=== PATIENT | male | born 1945 | race Caucasian/White ===

== ENCOUNTER 2025-05-18 14:28 | Emergency (ER) | payer MEDICARE, SELFPAY ==
[2025-05-18 14:20] VITALS: BP 102/69; PULSE 100; RESP 18; TEMP 37.3; O2SAT 98; BMI 22.9
--- NOTE | 2025-05-18 14:32 | XR_ITS ---
WS: [id number] Portable AP upright chest, 05/18/2025 Clinical Data: Possible Sepsis Comparison: None. Findings: No nodules, masses or effusions are seen. The heart is normal. The pulmonary vascularity is not increased. No pneumonia or pneumothorax is seen. The aortic arch and descending thoracic aorta show tortuosity. XR/XR chest 1V portable [id number] Impression: Atherosclerosis.
--- NOTE | 2025-05-18 14:35 | CTR_ITS ---
PROCEDURE INFORMATION: Exam: CT Head Without Contrast Exam date and time: 05/18/2025 3:23 PM Age: 79 years old Clinical indication: Altered mental status/memory loss; Additional info: AMS TECHNIQUE: Imaging protocol: Computed tomography of the head without contrast. Radiation optimization: All CT scans at this facility use at least one of these dose optimization techniques: automated exposure control; mA and/or kV adjustment per patient size (includes targeted exams where dose is matched to clinical indication); or iterative reconstruction. COMPARISON: No relevant prior studies available. RADIATION DOSE METRICS: Total DLP (mGy-cm): 905.68 FINDINGS: Brain: Moderate to severe diffuse atrophy of the brain.There is ill-defined, fairly symmetric low-density within the cerebral deep white matter bilaterally which is likely the sequela of chronic ischemic change due to small vessel disease. No CT evidence of mass effect, intracranial hemorrhage, or acute infarct. Cerebral ventricles: Prominent ventricles due to the atrophy. Otherwise, unremarkable. Paranasal sinuses: Visualized sinuses are unremarkable. No fluid levels. Mastoid air cells: Visualized mastoid air cells are well aerated. Auditory system: Clear middle ear cavities bilaterally. Bones: Unremarkable. No acute fracture. Soft tissues: Otherwise, unremarkable. CT/CT head wo con* [id number] IMPRESSION: 1. No acute findings. 2. Additional details as above.
--- NOTE | 2025-05-18 14:35 | W.ED.AMS ---
Documented by User: Charis Christine MD 05/18/25 17:58 HPI - Altered Mental Status General: Chief Complaint: Altered Mental Status Stated Complaint: ams - cold extremities Time Seen by Provider: 05/18/25 19:14 Source: EMS Mode of arrival: EMS Limitations: altered mental status History of Present Illness: 79-year-old male is here from custodial has a history dementia per EMS patient's been more confused and normal was recently diagnosed with UTI there has been febrile there today EMS states that a temperature 101. Patient is here only able to tell me his name not able to give any other history besides that. EMS states he does have a history of severe dementia. No vomiting no diarrhea known Related Data Home Medications ?Medication ?Instructions ?Recorded ?Confirmed amlodipine 5 mg tablet 5 mg PO DAILY 05/18/25 05/18/25 aspirin 81 mg tablet,delayed 81 mg PO DAILY 05/18/25 05/18/25 release atorvastatin 20 mg tablet 20 mg PO BEDTIME 05/18/25 05/18/25 bisacodyl 10 mg rectal suppository 10 mg WY DAILY PRN Constipation 05/18/25 05/18/25 cephalexin 500 mg capsule 500 mg PO TID x7d 05/18/25 05/18/25 docusate sodium 100 mg capsule 200 mg PO DAILY PRN Constipation 05/18/25 05/18/25 (Colace) magnesium hydroxide 400 mg/5 mL 30 ml PO DAILY PRN Constipation 05/18/25 05/18/25 oral suspension (Milk of Magnesia) nystatin 100,000 unit/gram topical See Rx Instructions .Route .COMPLEX 05/18/25 05/18/25 cream polyethylene glycol 3350 17 417 g PO DAILY PRN Constipation 05/18/25 05/18/25 gram/dose oral powder (Miralax) sennosides 8.6 mg tablet (senna) 17.2 mg PO DAILY PRN bowel 05/18/25 05/18/25 management tramadol 50 mg tablet 50 mg PO Q6H PRN Pain 05/18/25 05/18/25 Allergies Allergy/AdvReac Type Severity Reaction Status Date / Time No Known Allergies Allergy Verified 05/18/25 14:30 Review of Systems General: Reports: ROS unobtainable due to mental status Physical Exam Const: COMMON NORMALS: negative for patient oriented x3 GENERAL APPEARANCE: ill appearing and frail appearing HENMT: COMMON NORMALS: normocephalic and atraumatic HEAD & SCALP: normocephalic and atraumatic Eye: COMMON NORMALS: Equal, round and reactive pupils present and EOMs intact bilaterally PUPIL: Yes Equal, round and reactive pupils present Neck/C-Spine: COMMON NORMALS: full ROM and supple Chest: COMMONS NORMALS: normal inspection of the chest and normal palpation of entire chest wall Resp: COMMON NORMALS: normal respiratory effort, No retractions, No use of accessory muscles and clear to auscultation bilaterally AUSCULTATION: clear to auscultation bilaterally Cardio: COMMON NORMALS: regular rate, regular rhythm and No murmurs present (Cardio) RATE: regular rate RHYTHM: regular rhythm GI: COMMON NORMALS: Normal to inspection, nondistended, normoactive bowel sounds present, Soft to palpation, non-tender and no masses PALPATION: Yes Soft to palpation Extremity: COMMON NORMALS: normal to inspection and full ROM Neuro: COMMON NORMALS: moves all extremities and no focal motor deficits; negative for patient oriented x3 Psych: COMMON NORMALS: cooperative; negative for mental status grossly normal Skin: COMMON NORMALS: no rashes or lesions noted and no wounds GENERAL SKIN EXAM: no rashes or lesions noted Course Vital Signs: Vital signs: Vital Signs Temperature 99.2 F 05/18/25 14:20 Pulse Rate 90 05/19/25 01:31 Respiratory Rate 16 05/19/25 01:31 Blood Pressure 120/83 05/19/25 01:31 Pulse Oximetry 100 05/19/25 01:31 Oxygen Delivery Me thod Room Air 05/18/25 18:35 MDM - Altered Mental Status Medical Decision Making Patient presents here with fever along with sepsis. Patient was found to have a urinary tract infection does have an elevated white count CT showed bladder wall thickening along with a irregular density the right distal ureter could be a phlegmon or developing abscess. Patient did get sepsis bolus blood cultures along with IV antibiotics here. His vitals here been normal. I do have a call out to urology at [facility] for possible transfer for urology with the possible abscess. Patient's care turned over to Dr. Weems at this time to facilitate phone calls and possible transfer Medical Records I reviewed the patient's medical records. Lab Data I reviewed the patient's lab results. 05/18/25 14:43 05/18/25 14:43 Radiology Impressions Chest X-Ray 05/18/25 14:32 Impression: Atherosclerosis. Head CT 05/18/25 14:35 IMPRESSION: 1. No acute findings. 2. Additional details as above. Abdomen/Pelvis CT 05/18/25 15:55 IMPRESSION: 1. Marked diffuse thickening of the urinary bladder wall measuring as much as 2.5 cm. Consider cystitis and partial bladder outlet obstruction. 2. Markedly enlarged prostate gland measuring 8 cm by 6.3 cm by 6 cm. 3. Moderate bilateral hydronephrosis and hydroureter is likely secondary to the bladder pathology. 4. There is a slightly irregular density to the right of the distal right ureter and posterior bladder measuring 2.5 cm in AP dimension by 3 cm in transverse dimension by 4.5 cm in AP dimension. Uncertain etiology. Some differential possibilities include extravasation of urine, a phlegmon or developing abscess, a small hematoma, or lymphadenopathy. 5. No other acute findings. 6. Additional details as above. Laboratory Results WBC 14.60 10^3/uL (3.29-11.43) H 05/18/25 14:43 RBC 4.07 10^6/uL (3.85-5.65) 05/18/25 14:43 Hgb 13.10 g/dL (11.27-16.99) 05/18/25 14:43 Hct 39.3 % (37-53) 05/18/25 14:43 MCV 96.6 fl (82-101) 05/18/25 14:43 MCH 32.2 pg (27-33) 05/18/25 14:43 MCHC 33.3 g/dL (30-55) 05/18/25 14:43 RDW 12.9 % (12.1-15.1) 05/18/25 14:43 Plt Count 296 10^3/cmm (157-399) 05/18/25 14:43 MPV 11.6 fL (7.4-10.4) H 05/18/25 14:43 Neut % (Auto) 81.9 % 05/18/25 14:43 Lymph % (Auto) 7.7 % 05/18/25 14:43 Dickenson % (Auto) 9.8 % 05/18/25 14:43 Eos % (Auto) 0.0 % 05/18/25 14:43 Baso % (Auto) 0.1 % 05/18/25 14:43 Neut # (Auto) 11.95 10^3/uL (1.8-7.7) H 05/18/25 14:43 Lymph # (Auto) 1.1 10^3/uL (0.8-4.8) 05/18/25 14:43 Dickenson # (Auto) 1.4 10^3/uL (0.2-0.9) H 05/18/25 14:43 Eos # (Auto) 0.0 10^3/uL (0.0-0.8) 05/18/25 14:43 Baso # (Auto) 0.0 10^3/uL (0.0-0.1) 05/18/25 14:43 Nucleated RBC % (auto) 0 % 05/18/25 14:43 Nucleated RBCs # 0.0 /100WBC 05/18/25 14:43 PT 15.70 SECONDS (12.1-14.9) H 05/18/25 14:43 INR 1.17 (0.8-1.2) 05/18/25 14:43 Sodium 151 mmol/L (136-145) H 05/18/25 14:43 Potassium 4.1 mmol/L (3.5-5.1) 05/18/25 14:43 Chloride 109 mmol/L (98-107) H 05/18/25 14:43 Carbon Dioxide 22 mmol/L (22-29) 05/18/25 14:43 Anion Gap 24.1 (5-19) H 05/18/25 14:43 BUN 100 mg/dL (8-23) H* 05/18/25 14:43 Creatinine 4.3 mg/dL (0.7-1.2) H 05/18/25 14:43 GFR Calculation Not Reportable 05/18/25 14:43 Glucose 121 mg/dL (65-115) H 05/18/25 14:43 Calculated Osmolality 344 mOsm/kg (285-295) H 05/18/25 14:43 Lactic Acid 2.6 mmol/L (0.5-2.2) H 05/18/25 14:43 Lactic Acid (Sepsis) 2.0 mmol/L (0.5-2.2) 05/18/25 17:29 Calcium 8.8 mg/dL (8.5-10.5) 05/18/25 14:43 Magnesium 2.1 mg/dL (1.7-2.3) 05/18/25 14:43 Total Bilirubin 0.9 mg/dL (0.15-1.2) 05/18/25 14:43 AST 32 U/L (0-40) 05/18/25 14:43 ALT 31 U/L (0-41) 05/18/25 14:43 Alkaline Phosphatase 119 U/L (40-130) 05/18/25 14:43 Total Protein 7.6 g/dL (6.6-8.7) 05/18/25 14:43 Albumin 3.5 g/dL (3.5-5.2) 05/18/25 14:43 Globulin 4.1 g/dL (1.3-4.6) 05/18/25 14:43 Urine Color Yellow (Yellow) 05/18/25 14:55 Urine Appearance Turbid (CLEAR) A 05/18/25 14:55 Urine pH 8.5 (5-7) A 05/18/25 14:55 Ur Specific Spraggs 1.012 (1.005-1.030) 05/18/25 14:55 Urine Protein 3+ (Negative) A 05/18/25 14:55 Urine Glucose (UA) Negative (Normal) 05/18/25 14:55 Urine Ketones Negative (Negative) 05/18/25 14:55 Urine Blood 2+ (Negative) A 05/18/25 14:55 Urine Nitrate Negative (Negative) 05/18/25 14:55 Urine Bilirubin Negative (Negative) 05/18/25 14:55 Urine Urobilinogen 1.0 mg/dL (Negative) 05/18/25 14:55 Ur Leukocyte Esterase 3+ (Negative) A 05/18/25 14:55 Urine RBC 0-2 /hpf (0-2) 05/18/25 14:55 Urine WBC >100 /hpf (0-5) H 05/18/25 14:55 Ur Squamous Epith Cells 0-5 /hpf (0-5) 05/18/25 14:55 Amorphous Sediment Not Reportable 05/18/25 14:55 Urine Bacteria 4+ /hpf (NONE) H 05/18/25 14:55 Hyaline Casts 50.46 /lpf 05/18/25 14:55 All radiology interpretation(s) finalized by discharge EKG Data EKG 1: I personally reviewed and interpreted this EKG as follows: EKG interpretation date: 05/18/25 EKG interpretation time: 15:02 Interpretation: sinus tach hr [address] elevation qrs 116 qtc 389 Critical Care Time Critical Care Time: Critical Care Time: Yes Total Critical Care Time: 45 Attestation: The high probability of a clinically significant, sudden or life threatening deterioration of the patient's renal system(s) required my full and direct attention, intervention and personal management. The critical care time is as shown. This time is in addition to time spent performing any reported procedures but includes the following: [x] Data and vital sign review and interpretation [x] Patient assessment, examination and intervention [x] Documentation [x] Medication orders and management Discharge Plan Discharge Patient Disposition: Transfer to ED Clinical Impression: Acute UTI, Retroperitoneal mass Condition: Stable Prescriptions: No Action sennosides [senna] 8.6 mg Tablet 17.2 mg PO DAILY PRN (Reason: bowel management) atorvastatin 20 mg tablet 20 mg PO BEDTIME amlodipine 5 mg tablet 5 mg PO DAILY aspirin [Aspir-81] 81 mg Tablet,Delayed Release (Dr/Ec) 81 mg PO DAILY tramadol 50 mg Tablet 50 mg PO Q6H PRN (Reason: Pain) magnesium hydroxide [Milk of Magnesia] 400 mg/5 mL Suspension 30 ml PO DAILY PRN (Reason: Constipation) bisacodyl 10 mg Suppository 10 mg WY DAILY PRN (Reason: Constipation) cephalexin 500 mg capsule 500 mg PO TID nystatin 100,000 unit/gram cream See Rx Instructions .ROUTE .COMPLEX Rx Instructions: Apply to groin topically every shift for wound care and as needed for skin breakdown. docusate sodium [Colace] 100 mg Capsule 200 mg PO DAILY PRN (Reason: Constipation) polyethylene glycol 3350 [Miralax] 17 gram/dose Powder 417 g PO DAILY PRN (Reason: Constipation) Patient Instructions: Altered Mental Status (ED) Print Language: Latvian Coding Level of Care Code ED Hearing Examiner for Chg Fwd Documented by User: Duncanjewell Weems, DO 05/19/25 04:17 HPI - Altered Mental Status General: Chief Complaint: Altered Mental Status Stated Complaint: ams - cold extremities Time Seen by Provider: 05/18/25 19:14 History of Present Illness: 79-year-old male is here from custodial has a history dementia per EMS patient's been more confused and normal was recently diagnosed with UTI there has been febrile there today EMS states that a temperature 101. Patient is here only able to tell me his name not able to give any other history besides that. EMS states he does have a history of severe dementia. No vomiting no diarrhea Related Data Home Medications ?Medication ?Instructions ?Recorded ?Confirmed amlodipine 5 mg tablet 5 mg PO DAILY 05/18/25 05/18/25 aspirin 81 mg tablet,delayed 81 mg PO DAILY 05/18/25 05/18/25 release atorvastatin 20 mg tablet 20 mg PO BEDTIME 05/18/25 05/18/25 bisacodyl 10 mg rectal suppository 10 mg WY DAILY PRN Constipation 05/18/25 05/18/25 cephalexin 500 mg capsule 500 mg PO TID x7d 05/18/25 05/18/25 docusate sodium 100 mg capsule 200 mg PO DAILY PRN Constipation 05/18/25 05/18/25 (Colace) magnesium hydroxide 400 mg/5 mL 30 ml PO DAILY PRN Constipation 05/18/25 05/18/25 oral suspension (Milk of Magnesia) nystatin 100,000 unit/gram topical See Rx Instructions .Route .COMPLEX 05/18/25 05/18/25 cream polyethylene glycol 3350 17 417 g PO DAILY PRN Constipation 05/18/25 05/18/25 gram/dose oral powder (Miralax) sennosides 8.6 mg tablet (senna) 17.2 mg PO DAILY PRN bowel 05/18/25 05/18/25 management tramadol 50 mg tablet 50 mg PO Q6H PRN Pain 05/18/25 05/18/25 Allergies Allergy/AdvReac Type Severity Reaction Status Date / Time No Known Allergies Allergy Verified 05/18/25 14:30 Course Vital Signs: Vital signs: Vital Signs Temperature 99.2 F 05/18/25 14:20 Pulse Rate 90 05/19/25 01:31 Respiratory Rate 16 05/19/25 01:31 Blood Pressure 120/83 05/19/25 01:31 Pulse Oximetry 100 05/19/25 01:31 Oxygen Delivery Me thod Room Air 05/18/25 18:35 MDM - Altered Mental Status Medical Decision Making Patient presents here with fever along with sepsis. Patient was found to have a urinary tract infection does have an elevated white count CT showed bladder wall thickening along with a irregular density the right distal ureter could be a phlegmon or developing abscess. Patient did get sepsis bolus blood cultures along with IV antibiotics here. His vitals here been normal. I do have a call out to urology at [facility] for possible transfer for urology with the possible abscess. Patient's care turned over to Dr. Weems at this time to facilitate phone calls and possible transfer. Patient checked out to me at shift change. Spoke with urology. Because of the extra ureteral nature of the density, it would not be amenable to stenting. He requests we speak to interventional radiology. Radiology agreed to consult on the patient. Hospitalist agreed to admit. He went by ground ambulance to [facility] for treatment with consultation by radiology and urology. He was stable at time of transfer. Lab Data 05/18/25 14:43 05/18/25 14:43 Radiology Impressions Chest X-Ray 05/18/25 14:32 Impression: Atherosclerosis. Head CT 05/18/25 14:35 IMPRESSION: 1. No acute findings. 2. Additional details as above. Abdomen/Pelvis CT 05/18/25 15:55 IMPRESSION: 1. Marked diffuse thickening of the urinary bladder wall measuring as much as 2.5 cm. Consider cystitis and partial bladder outlet obstruction. 2. Markedly enlarged prostate gland measuring 8 cm by 6.3 cm by 6 cm. 3. Moderate bilateral hydronephrosis and hydroureter is likely secondary to the bladder pathology. 4. There is a slightly irregular density to the right of the distal right ureter and posterior bladder measuring 2.5 cm in AP dimension by 3 cm in transverse dimension by 4.5 cm in AP dimension. Uncertain etiology. Some differential possibilities include extravasation of urine, a phlegmon or developing abscess, a small hematoma, or lymphadenopathy. 5. No other acute findings. 6. Additional details as above. Laboratory Results WBC 14.60 10^3/uL (3.29-11.43) H 05/18/25 14:43 RBC 4.07 10^6/uL (3.85-5.65) 05/18/25 14:43 Hgb 13.10 g/dL (11.27-16.99) 05/18/25 14:43 Hct 39.3 % (37-53) 05/18/25 14:43 MCV 96.6 fl (82-101) 05/18/25 14:43 MCH 32.2 pg (27-33) 05/18/25 14:43 MCHC 33.3 g/dL (30-55) 05/18/25 14:43 RDW 12.9 % (12.1-15.1) 05/18/25 14:43 Plt Count 296 10^3/cmm (157-399) 05/18/25 14:43 MPV 11.6 fL (7.4-10.4) H 05/18/25 14:43 Neut % (Auto) 81.9 % 05/18/25 14:43 Lymph % (Auto) 7.7 % 05/18/25 14:43 Dickenson % (Auto) 9.8 % 05/18/25 14:43 Eos % (Auto) 0.0 % 05/18/25 14:43 Baso % (Auto) 0.1 % 05/18/25 14:43 Neut # (Auto) 11.95 10^3/uL (1.8-7.7) H 05/18/25 14:43 Lymph # (Auto) 1.1 10^3/uL (0.8-4.8) 05/18/25 14:43 Dickenson # (Auto) 1.4 10^3/uL (0.2-0.9) H 05/18/25 14:43 Eos # (Auto) 0.0 10^3/uL (0.0-0.8) 05/18/25 14:43 Baso # (Auto) 0.0 10^3/uL (0.0-0.1) 05/18/25 14:43 Nucleated RBC % (auto) 0 % 05/18/25 14:43 Nucleated RBCs # 0.0 /100WBC 05/18/25 14:43 PT 15.70 SECONDS (12.1-14.9) H 05/18/25 14:43 INR 1.17 (0.8-1.2) 05/18/25 14:43 Sodium 151 mmol/L (136-145) H 05/18/25 14:43 Potassium 4.1 mmol/L (3.5-5.1) 05/18/25 14:43 Chloride 109 mmol/L (98-107) H 05/18/25 14:43 Carbon Dioxide 22 mmol/L (22-29) 05/18/25 14:43 Anion Gap 24.1 (5-19) H 05/18/25 14:43 BUN 100 mg/dL (8-23) H* 05/18/25 14:43 Creatinine 4.3 mg/dL (0.7-1.2) H 05/18/25 14:43 GFR Calculation Not Reportable 05/18/25 14:43 Glucose 121 mg/dL (65-115) H 05/18/25 14:43 Calculated Osmolality 344 mOsm/kg (285-295) H 05/18/25 14:43 Lactic Acid 2.6 mmol/L (0.5-2.2) H 05/18/25 14:43 Lactic Acid (Sepsis) 2.0 mmol/L (0.5-2.2) 05/18/25 17:29 Calcium 8.8 mg/dL (8.5-10.5) 05/18/25 14:43 Magnesium 2.1 mg/dL (1.7-2.3) 05/18/25 14:43 Total Bilirubin 0.9 mg/dL (0.15-1.2) 05/18/25 14:43 AST 32 U/L (0-40) 05/18/25 14:43 ALT 31 U/L (0-41) 05/18/25 14:43 Alkaline Phosphatase 119 U/L (40-130) 05/18/25 14:43 Total Protein 7.6 g/dL (6.6-8.7) 05/18/25 14:43 Albumin 3.5 g/dL (3.5-5.2) 05/18/25 14:43 Globulin 4.1 g/dL (1.3-4.6) 05/18/25 14:43 Urine Color Yellow (Yellow) 05/18/25 14:55 Urine Appearance Turbid (CLEAR) A 05/18/25 14:55 Urine pH 8.5 (5-7) A 05/18/25 14:55 Ur Specific Spraggs 1.012 (1.005-1.030) 05/18/25 14:55 Urine Protein 3+ (Negative) A 05/18/25 14:55 Urine Glucose (UA) Negative (Normal) 05/18/25 14:55 Urine Ketones Negative (Negative) 05/18/25 14:55 Urine Blood 2+ (Negative) A 05/18/25 14:55 Urine Nitrate Negative (Negative) 05/18/25 14:55 Urine Bilirubin Negative (Negative) 05/18/25 14:55 Urine Urobilinogen 1.0 mg/dL (Negative) 05/18/25 14:55 Ur Leukocyte Esterase 3+ (Negative) A 05/18/25 14:55 Urine RBC 0-2 /hpf (0-2) 05/18/25 14:55 Urine WBC >100 /hpf (0-5) H 05/18/25 14:55 Ur Squamous Epith Cells 0-5 /hpf (0-5) 05/18/25 14:55 Amorphous Sediment Not Reportable 05/18/25 14:55 Urine Bacteria 4+ /hpf (NONE) H 05/18/25 14:55 Hyaline Casts 50.46 /lpf 05/18/25 14:55 Discharge Plan Discharge Patient Disposition: Transfer to ED Clinical Impression: Acute UTI, Retroperitoneal mass Condition: Stable Prescriptions: No Action sennosides [senna] 8.6 mg Tablet 17.2 mg PO DAILY PRN (Reason: bowel management) atorvastatin 20 mg tablet 20 mg PO BEDTIME amlodipine 5 mg tablet 5 mg PO DAILY aspirin [Aspir-81] 81 mg Tablet,Delayed Release (Dr/Ec) 81 mg PO DAILY tramadol 50 mg Tablet 50 mg PO Q6H PRN (Reason: Pain) magnesium hydroxide [Milk of Magnesia] 400 mg/5 mL Suspension 30 ml PO DAILY PRN (Reason: Constipation) bisacodyl 10 mg Suppository 10 mg WY DAILY PRN (Reason: Constipation) cephalexin 500 mg capsule 500 mg PO TID nystatin 100,000 unit/gram cream See Rx Instructions .ROUTE .COMPLEX Rx Instructions: Apply to groin topically every shift for wound care and as needed for skin breakdown. docusate sodium [Colace] 100 mg Capsule 200 mg PO DAILY PRN (Reason: Constipation) polyethylene glycol 3350 [Miralax] 17 gram/dose Powder 417 g PO DAILY PRN (Reason: Constipation) Patient Instructions: Altered Mental Status (ED) Print Language: Latvian Coding Level of Care Code ED Hearing Examiner for Daniele Wilson
[2025-05-18 14:58] LABS: Hematocrit 39.3 % (37-53); Hemoglobin 13.10 g/dL (11.27-16.99); Mean Corpuscular HGB Conc 33.3 g/dL (30-55); Mean Corpuscular Hemoglobin 32.2 pg (27-33); Mean Corpuscular Volume 96.6 fl (82-101); Nucleated Red Blood Cells % 0 %; Platelet Count 296 10^3/cmm (157-399); Red Blood Count 4.07 10^6/uL (3.85-5.65); White Blood Count 14.60 10^3/uL (3.29-11.43)
[2025-05-18 15:02] LABS: Glucose Urine UA Negative (Normal); Nitrate Urine Negative (Negative); Specific Gravity, Urine 1.012 (1.005-1.030)
--- NOTE | 2025-05-18 15:02 | ECG_ITS ---
[facility] [place] [facility] Date: 2025-05-18 Pat Name: Julián Nina Department: Room: Gender: Male Entertainment Reporter: : 1945 Requested By: Charis Christine Order Number: [id number] Jaime MD: Iban Gastelum M.D. Measurements Intervals [place] Rate: 103 P: 60 TX: 133 QRS: -55 QRSD: 116 T: 82 QT: 329 QTc: 433 Interpretive Statements SINUS TACHYCARDIA WITH FREQUENT VENTRICULAR PREMATURE COMPLEXES RIGHT BUNDLE BRANCH BLOCK [120+ ms QRS DURATION, UPRIGHT V1, 40+ ms S IN I/aVL/V4/V5/V6] LEFT ANTERIOR FASCICULAR BLOCK [QRS AXIS <= -45, QR IN I, RS IN II] POSSIBLE SEPTAL MYOCARDIAL INFARCTION , PROBABLY OLD [30 ms Q WAVE IN V1/V2] No previous ECG available for comparison Electronically Signed On 05-18-2025 15:27:21 CDT by Iban Gastelum M.D. [email or web address]
[2025-05-18 15:06] LABS: Add Urine Microscopic? YES
[2025-05-18 15:11] LABS: INR 1.17 (0.8-1.2); Prothrombin Time 15.70 SECONDS (12.1-14.9)
[2025-05-18 15:16] LABS: Alanine Aminotransferase 31 U/L (0-41); Albumin Level 3.5 g/dL (3.5-5.2); Alkaline Phosphatase 119 U/L (40-130); Anion Gap 24.1 (5-19); Aspartate Amino Transferase 32 U/L (0-40); Calcium 8.8 mg/dL (8.5-10.5); Carbon Dioxide 22 mmol/L (22-29); Chloride 109 mmol/L (98-107); Creatinine Clr Calc Pharmacy 14.3496; Globulin 4.1 g/dL (1.3-4.6); Glucose 121 mg/dL (65-115); Magnesium 2.1 mg/dL (1.7-2.3); Osmolality Calculated 344 mOsm/kg (285-295); Potassium 4.1 mmol/L (3.5-5.1); Sodium 151 mmol/L (136-145); Total Protein 7.6 g/dL (6.6-8.7)
[2025-05-18 15:17] LABS: Lactic Sepsis W/Reflex 2.6 mmol/L (0.5-2.2)
--- NOTE | 2025-05-18 15:17 | PC.PHAR ---
pt is from [facility]
[2025-05-18 15:21] LABS: Reflex Lactate Order REFLEX LACTIC ORDERD
[2025-05-18 15:24] LABS: UA Slide Review UA Slide Review Perf
[2025-05-18 15:28] LABS: Blood Urea Nitrogen 100 mg/dL (8-23)
--- NOTE | 2025-05-18 15:55 | CTR_ITS ---
PROCEDURE INFORMATION: Exam: CT Abdomen And Pelvis Without Contrast Exam date and time: 05/18/2025 4:27 PM Age: 79 years old Clinical indication: Abdominal tenderness; Additional info: Acute cystitis TECHNIQUE: Imaging protocol: Computed tomography of the abdomen and pelvis without contrast. Radiation optimization: All CT scans at this facility use at least one of these dose optimization techniques: automated exposure control; mA and/or kV adjustment per patient size (includes targeted exams where dose is matched to clinical indication); or iterative reconstruction. COMPARISON: CR XR chest 1V portable [id number] 05/18/2025 3:10 PM RADIATION DOSE METRICS: Total DLP (mGy-cm): 789.43 FINDINGS: Lungs: Calcified granulomas in the lung bases. Otherwise, unremarkable. Liver: Normal. No mass. Gallbladder and biliary ducts: Normal. No calcified stones. No ductal dilation. Pancreas: Normal. No ductal dilation. Spleen: Multiple calcified granulomas in the spleen. Otherwise, unremarkable. Adrenal glands: Normal. No mass. Kidneys and ureters: Moderate bilateral hydronephrosis and hydroureter is likely secondary to the bladder pathology. There is a slightly irregular density to the right of the distal right ureter and posterior bladder measuring 2.5 cm in AP dimension by 3 cm in transverse dimension by 4.5 cm in AP dimension. Otherwise, unremarkable. Stomach and bowel: Multiple diverticula from the colon. No diverticulitis. Otherwise, unremarkable. Appendix: No evidence of appendicitis. Intraperitoneal space: Unremarkable. No free air. No significant fluid collection. Vasculature: Large amount of arterial calcification. Otherwise, unremarkable. Lymph nodes: No other suspected lymphadenopathy. Urinary bladder: Trans urethral Collado catheter terminating in the urinary bladder. Marked diffuse thickening of the urinary bladder wall measuring as much as 2.5 cm. Reproductive: Markedly enlarged prostate gland measuring 8 cm by 6.3 cm by 6 cm. Otherwise, unremarkable. Bones/joints: Moderate scoliosis. Multilevel spondylosis ranging from mild to severe. 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 Otherwise, unremarkable. Soft tissues: Small benign-appearing fat containing paraumbilical hernia. Mild bilateral gynecomastia. Otherwise, unremarkable visualized body wall. Otherwise, unremarkable soft tissues. CT/CT kidney stone [id number] IMPRESSION: 1. Marked diffuse thickening of the urinary bladder wall measuring as much as 2.5 cm. Consider cystitis and partial bladder outlet obstruction. 2. Markedly enlarged prostate gland measuring 8 cm by 6.3 cm by 6 cm. 3. Moderate bilateral hydronephrosis and hydroureter is likely secondary to the bladder pathology. 4. There is a slightly irregular density to the right of the distal right ureter and posterior bladder measuring 2.5 cm in AP dimension by 3 cm in transverse dimension by 4.5 cm in AP dimension. Uncertain etiology. Some differential possibilities include extravasation of urine, a phlegmon or developing abscess, a small hematoma, or lymphadenopathy. 5. No other acute findings. 6. Additional details as above.
[2025-05-18 17:00] VITALS: BP 102/59; PULSE 96; RESP 18; O2SAT 95
[2025-05-18 18:08] LABS: Lactic Acid level (Lactate) 2.0 mmol/L (0.5-2.2)
[2025-05-18 18:35] VITALS: BP 128/64; PULSE 103; O2SAT 99
[2025-05-18 20:28] VITALS: BP 93/58; PULSE 101; O2SAT 98
[2025-05-18 23:17] VITALS: BP 93/56; PULSE 111; RESP 15; O2SAT 89
[2025-05-19 00:30] VITALS: BP 106/50; RESP 17
[2025-05-19 01:31] VITALS: BP 120/83; PULSE 90; RESP 16; O2SAT 100
== END 2025-05-19 01:34 ==
PROVIDERS: Emergency Medicine; Emergency Provider Emergency Medicine
DX: N39.0 Urinary tract infection, site not specified (principal); K68.9 Other disorders of retroperitoneum; Z79.82 Long term (current) use of aspirin
CPT/HCPCS: 36415; 51702; 70450; 71045; 74176; 80053; 81001; 83605; 83735; 85025; 85610; 87040; 87077; 87086; 87150; 87186; 87205; 93005; 99285; J7030